=== PATIENT | male | born 1970 | race African-American/Black ===

== ENCOUNTER 2019-02-12 06:16 | Emergency (ER) | payer OTHER ==
[~2019-02-12] VITALS: Ht 172.7 cm; Wt 81.8 kg
[2019-02-12] MEDS ORDERED: no home meds (06:25)
[2019-02-12] MEDS ORDERED: ONDANSETRON 4MG/2ML VIAL (J2405) IV ONE (06:45)
[2019-02-12] MEDS ORDERED: NS 1,000 ML IV ONE (06:45)
[2019-02-12] MEDS ORDERED: KETOROLAC 30 MG/ML VIAL (J1885) IV ONE (06:45)
[2019-02-12 07:04] LABS: BASO # 0.1 10^3/uL (0.0-0.2); BASO % 0.8 % (0.0-1.0); EOS % 0.3 % (0.0-3.0); HEMATOCRIT 42.7 % (42.0-52.0); HEMOGLOBIN 14.6 g/dl (13.5-17.5); MEAN CORPUSCULAR HEMOGLOBIN 34.4 pg (27.0-33.0); MEAN CORPUSCULAR HGB CONC 34.2 g/dl (32.0-36.5); MEAN CORPUSCULAR VOLUME 100.5 fl (80.0-96.0); MONO # 0.6 10^3/uL (0.0-0.8); MONO % 7.8 % (0.0-5.0); NEUTROPHILS # 5.6 10^3/uL (1.8-7.7); NEUTROPHILS % 76.8 % (36.0-66.0); PLATELET COUNT, AUTOMATED 223 10^3/uL (150-450); RED BLOOD COUNT 4.25 10^6/uL (4.30-6.10); WHITE BLOOD COUNT 7.3 10^3/uL (4.0-10.0)
--- NOTE | 2019-02-12 07:26 | REPVR ---
EXAM: CT Abdomen and Pelvis Without Contrast EXAM DATE/TIME: 02/12/2019 6:47 AM CLINICAL HISTORY: 48 years old, male; Abdominal pain; Localized; Left; Additional info: Left renal colic TECHNIQUE: Imaging protocol: Axial computed tomography images of the abdomen and pelvis without contrast. Coronal and sagittal reformatted images were created and reviewed. Radiation optimization: All CT scans at this facility use at least one of these dose optimization techniques: automated exposure control; mA and/or kV adjustment per patient size (includes targeted exams where dose is matched to clinical indication); or iterative reconstruction. COMPARISON: No relevant prior studies available. FINDINGS: Liver: There are numerous scattered small to characterize hepatic hypodensities the largest measuring 1 cm. Gallbladder and bile ducts: Normal. No calcified stones. No ductal dilation. Pancreas: Normal. No ductal dilation. Spleen: Normal. No splenomegaly. Adrenals: Normal. No mass. Kidneys and ureters: There is a 3 mm left UVJ stone with [id number] proximal hydronephrosis with perinephric stranding and edema. Bilateral renal stones seen the largest on the right measures 1-2 mm and the largest on the left measures 3-4 mm. There is a lobulated 7.8 x 4.8 cm right renal cyst. Few smaller right renal cysts seen. Multiple left renal cysts seen the largest measures 4.5 x 3.3 cm. Stomach and bowel: Normal. No obstruction. No mucosal thickening. Appendix: No evidence of appendicitis. Intraperitoneal space: Normal. No free air. No significant fluid collection. Vasculature: There is mild aortic and iliac mural calcifications. Lymph nodes: Normal. No enlarged lymph nodes. Bladder: The urinary bladder is under distended with suggestion of thickening. Reproductive: Unremarkable as visualized. Bones/joints: No acute fracture. No dislocation. Soft tissues: Unremarkable. IMPRESSION: 1. 3 mm left UVJ stone with mild to moderate proximal hydronephrosis and hydroureter. 2. Bilateral nephrolithiasis. 3. Bilateral renal cysts the largest on the right measures 7.8 x 4.8 cm and the largest on the left measures 4.5 x 3.3 cm. Further characterization with ultrasound is suggested. 4. Under distended versus thickened urinary bladder wall. Correlate clinically and with urinalysis for cystitis. 5. Numerous too small to characterize hepatic hypodensities the largest measuring 1 cm possibly cysts. Further characterization with MRI may be obtained. COMMENT: Consistent with the [employer]'s Incidental Findings Committee Report (J [employer] 2010): Unless the patient's specific circumstances suggest otherwise, any liver lesion 0.5 cm or less, any cystic kidney lesion less than 1.0 cm, and/or any adrenal lesion 1.0 cm or less not otherwise characterized in this report as possessing suspicious or indeterminate imaging features is/are highly likely to be benign and do not require follow-up imaging or biopsy. Electronically signed by: Osmel Faust On 02/12/2019 07:25:49 AM
[2019-02-12 07:28] LABS: BLOOD UREA NITROGEN 13 MG/DL (7-18); CALCIUM LEVEL 8.9 MG/DL (8.5-10.1); CARBON DIOXIDE LEVEL 28 MEQ/L (21-32); CHLORIDE LEVEL 105 MEQ/L (98-107); CREATININE FOR GFR 1.46 MG/DL (0.70-1.30); GLOMERULAR FILTRATION RATE > 60.0 (>60); GLUCOSE, FASTING 104 MG/DL (70-100); POTASSIUM SERUM 3.7 MEQ/L (3.5-5.1); SODIUM LEVEL 142 MEQ/L (136-145)
[2019-02-12] MEDS ORDERED: ONDA4TAB6 PO (07:55)
[2019-02-12] MEDS ORDERED: FLOM0.4C39 PO (07:55)
[2019-02-12] MEDS ORDERED: IBUP-1022 PO (07:55)
[2019-02-12 08:15] VITALS: BP 129/64
--- NOTE | 2019-02-16 19:55 | ED PDOC ---
Post-Departure Follow-Up [facility] faxed formal report of ct abd/p for fu Donovan Kramer MD Feb 16, 2019 19:55
== END 2019-02-12 08:20 | disposition home or self-care (01) ==
LOC: M ED 06:16
DX: N13.0 Hydronephrosis with ureteropelvic junction obstruction (principal); N20.0 Calculus of kidney; N28.1 Cyst of kidney, acquired; Z88.0 Allergy status to penicillin; Z88.2 Allergy status to sulfonamides
CPT/HCPCS: 74176; 80048; 81001; 85025; 87086; 96374; 96375; 99284; J1885; J2405

== ENCOUNTER → 2019-04-11 | Outpatient (CLI) | payer OTHER ==
[~2019-04-11] MED LIST: FLOM0.4C39 PO; IBUP-1022 PO; ONDA4TAB6 PO; no home meds
--- NOTE | 2019-04-11 10:35 | REP ---
PA and lateral chest: There are no comparisons. The lung lowry are clear. The cardiac size is normal. The zohaib, mediastinum, and skeletal structures are unremarkable. Impression: Negative PA and lateral chest. Electronically Signed by Savage Barrios MD 04/11/2019 10:28 A
== END ==
LOC: M RAD 08:32
PROVIDERS: ATTEND Surgery
DX: Z01.818 Encounter for other preprocedural examination (principal)